=== PATIENT | male | born 1955 | race Caucasian/White ===

== ENCOUNTER 2018-05-12 12:15 | Emergency (ER) | payer OTHER ==
[2018-05-12 14:12] LABS: Bilirubin Negative (Negative); Blood, Urine Trace (Negative); Clarity CLEAR (Clear); Glucose, Urine (Dipstick) Negative (Negative); Leukocyte Negative (Negative); Nitrite Negative (Negative); Protein, Urine (Dipstick) Negative (Neg-Trace); Specific Gravity, Urine 1.017 (1.002-1.036); pH, Urine 5.5 (5.0-9.0)
[2018-05-12 14:14] LABS: Bacteria/HPF None Seen HPF (None Seen); Hyaline Casts/LPF 0-3 HYALINE CAST LPF (0-3 Hyaline); RBC/HPF 0-3 HPF (0-3); Squamous Epithelial None Seen HPF (0-3); WBC/HPF None Seen HPF (0-3)
[2018-05-12 14:32] LABS: #Eosinphils 0.4 thou/uL (0.0-0.7); #Lymphocytes 1.8 thou/uL (1.20-3.40); #Monocytes 0.7 thou/uL (0.11-0.59); #Neutrophils 4.3 thou/uL (1.40-6.50); %Basophils 0.2 % (0.0-1.0); %Eosinophils 6.2 % (0.0-10.0); %Lymphocytes 24.3 % (21.0-51.0); %Monocytes 10.1 % (0.0-10.0); %Neutrophils 59.2 % (42.0-75.0); Hemoglobin 14.2 g/dL (14.0-18.0); Mean Corpuscular HGB CONC 33.1 g/dL (32.0-36.0); Mean Corpuscular Hemoglobin 32.9 pg (27.0-31.0); Mean Corpuscular Volume 99.4 fL (78.0-98.0); Mean Platelet Volume 7.8 fL (7.4-10.4); Platelet Count 189 thou/uL (130-400); RBC Distribution Width 12.2 % (11.5-14.5); Red Blood Cell (RBC) Count 4.32 mill/uL (4.70-6.10); White Blood Cell (WBC) Count 7.2 thou/uL (4.8-10.8)
[2018-05-12 14:51] LABS: ALT (SGPT) 17 U/L (8-55); AST (SGOT) 23 U/L (5-34); Albumin 4.2 g/dL (3.4-4.8); Alkaline Phosphatase 126 U/L (40-150); Anion Gap 12 mmol/L (10-20); BUN (Urea Nitrogen) 17 mg/dL (8.4-25.7); Bilirubin, Total 0.3 mg/dL (0.2-1.2); CK (CPK) 126 U/L (30-200); Calc. Creatinine Clearance 0 mL/min (70-130); Calcium 10.1 mg/dL (7.8-10.44); Carbon Dioxide 30 mmol/L (23-31); Chloride 103 mmol/L (98-107); Estimated GFR-MDRD Greater than 90; Globulin 3.4 g/dL (2.4-3.5); Glucose 107 mg/dL (80-115); Potassium 4.6 mmol/L (3.5-5.1); Protein, Total 7.6 g/dL (5.8-8.1); Sodium 140 mmol/L (136-145)
--- NOTE | 2018-05-12 16:03 | CT ---
CT HEAD NONCONTRAST: Date: 05/12/18 HISTORY: Fall. Head injury. Arm numbness. FINDINGS: No comparison. There is no evidence of acute intracranial hemorrhage or infarct. Ventricles appear normal in size, s hape, and position. Mild chronic ischemic small vessel disease and diffuse cortical atrophy. Visualiz ed paranasal sinuses remain well aerated. IMPRESSION: No acute intracranial abnormalities are demonstrated. POS: [facility]
--- NOTE | 2018-05-12 16:12 | CT ---
CT CERVICAL SPINE NONCONTRAST: Date: 05/12/18 HISTORY: Recent fall and neck injury. Bilateral arm numbness. FINDINGS: Vertebral body heights are maintained. Multilevel disc space narrowing. Minimal degenerative retrolis thesis at the C4-5 level. Prominent osteophytosis throughout the vertebral bodies and facets. No acut e fracture or dislocation. Cervicothoracic junction intact. The osteophytosis and disc bulges result in multilevel severe central canal and foraminal stenoses. IMPRESSION: Severe multilevel degenerative changes throughout the cervical spine. No acute osseous abnormalities are demonstrated. POS: [facility]
== END 2018-05-12 16:15 | disposition home or self-care (01) ==
LOC: ERS 12:15
DX: M54.12 Radiculopathy, cervical region (principal); I25.2 Old myocardial infarction; E78.5 Hyperlipidemia, unspecified; I10 Essential (primary) hypertension; F41.9 Anxiety disorder, unspecified; F32.9 Major depressive disorder, single episode, unspecified; F20.9 Schizophrenia, unspecified; Z79.82 Long term (current) use of aspirin
CPT/HCPCS: 36415; 70450; 72125; 80053; 81003; 81015; 82550; 84484; 85025; 93005; 94760

== ENCOUNTER 2018-07-30 15:12 | Observation (INO) | payer OTHER ==
--- NOTE | 2018-07-30 15:46 | RAD ---
PORTABLE CHEST: HISTORY: Dizziness. COMPARISON: No comparison. FINDINGS: Lungs appear well aerated and clear of infiltrate. There is evidence of small hilar calcified lymph nodes. Vascular markings are slightly more prominent in the lower lung mcadams of uncertain significa nce. No effusion or vascular congestion. No edema. Heart size is normal. Postop sternotomy change is seen. IMPRESSION: No acute process identified. POS: [facility]
--- NOTE | 2018-07-30 15:49 | RAD ---
RIGHT ANKLE 3 VIEWS: HISTORY: Trauma. FINDINGS: Obliquely oriented minimally displaced fracture is seen involving the lateral malleolus. No other fr acture identified. IMPRESSION: Fracture distal fibula. POS: OFF
[2018-07-30 15:58] LABS: #Basophils 0.1 thou/uL (0.0-0.2); #Eosinphils 0.4 thou/uL (0.0-0.7); #Lymphocytes 1.7 thou/uL (1.20-3.40); #Monocytes 0.8 thou/uL (0.11-0.59); #Neutrophils 4.8 thou/uL (1.40-6.50); %Basophils 1.4 % (0.0-1.0); %Eosinophils 5.2 % (0.0-10.0); %Lymphocytes 21.8 % (21.0-51.0); %Monocytes 10.2 % (0.0-10.0); %Neutrophils 61.3 % (42.0-75.0); Hemoglobin 13.8 g/dL (14.0-18.0); Mean Corpuscular HGB CONC 34.1 g/dL (32.0-36.0); Mean Corpuscular Hemoglobin 32.6 pg (27.0-31.0); Mean Corpuscular Volume 95.5 fL (78.0-98.0); Mean Platelet Volume 7.8 fL (7.4-10.4); Platelet Count 197 thou/uL (130-400); RBC Distribution Width 11.5 % (11.5-14.5); Red Blood Cell (RBC) Count 4.23 mill/uL (4.70-6.10); White Blood Cell (WBC) Count 7.8 thou/uL (4.8-10.8)
[2018-07-30 16:14] LABS: ALT (SGPT) 31 U/L (8-55); AST (SGOT) 37 U/L (5-34); Albumin 4.1 g/dL (3.4-4.8); Alkaline Phosphatase 81 U/L (40-150); Anion Gap 12 mmol/L (10-20); BUN (Urea Nitrogen) 17 mg/dL (8.4-25.7); Bilirubin, Total 0.8 mg/dL (0.2-1.2); Calc. Creatinine Clearance 0 mL/min (70-130); Calcium 9.5 mg/dL (7.8-10.44); Carbon Dioxide 29 mmol/L (23-31); Chloride 106 mmol/L (98-107); Estimated GFR-MDRD 72; Glucose 88 mg/dL (80-115); Potassium 4.7 mmol/L (3.5-5.1); Protein, Total 7.1 g/dL (5.8-8.1); Sodium 142 mmol/L (136-145)
[2018-07-30 16:17] LABS: Acetaminophen Less than 6.0 mcg/mL (10.0-30.0); Alcohol Less than 10 mg/dL (Less than 10); Salicylate Less than 8.0 mg/dL (15.0-30.0)
--- NOTE | 2018-07-30 16:21 | CT ---
CT HEAD WITHOUT CONTRAST: Technique: Multiple axial tomograms obtained through the head without IV enhancement. Indications: Trauma. Syncope. Comparison: 05-12-18 FINDINGS: Cortical volume loss over the frontal lobes is stable. Ventricles have normal size and position. Mild ischemic white matter changes appear stable. There is no evidence of acute hemorrhage or mass. Cerebellar atrophy is again seen and is unchanged in appearance. Sinuses and mastoids are clear. IMPRESSION: Prominent cerebellar atrophy. Moderate frontal lobe atrophy. These findings are stable. No acute proc ess apparent. POS: OFF
--- NOTE | 2018-07-30 16:23 | CT ---
CT CERVICAL SPINE: Technique: Multiple axial tomograms were obtained with multiplanar reconstruction. FINDINGS: Moderate degenerative changes of the cervical spine again noted. Loss of disc space and hypertrophic spurring again seen. Slight anterolisthesis at C3-4. Posterior spondylosis at multiple levels. No carolynn dence of acute fracture. Foraminal stenosis at multiple levels with impingement on the spinal canal a nd cord at C4-5 and C5-6. Severe right foraminal stenosis at C6-7. IMPRESSION: Degenerative changes as described. No acute fracture apparent. POS: OFF
[2018-07-30 16:58] LABS: Bilirubin Negative (Negative); Blood, Urine Negative (Negative); Clarity CLEAR (Clear); Glucose, Urine (Dipstick) Negative (Negative); Leukocyte Negative (Negative); Nitrite Negative (Negative); Protein, Urine (Dipstick) Negative (Neg-Trace); Specific Gravity, Urine 1.012 (1.002-1.036)
[2018-07-30 17:07] LABS: Amphetamine Not Detected (NotDetected); Barbiturates Screen Not Detected (NotDetected); Benzodiazepine Screen Not Detected (NotDetected); Cocaine Metabolite Screen Not Detected (NotDetected); Medtox Control Line Valid? VALID (VALID); Medtox Reader # READER 4; Methadone Not Detected (NotDetected); Methamphetamine Not Detected (NotDetected); Opiate Screen Not Detected (NotDetected); Oxycodone Screen Not Detected (NotDetected); Phencyclidine (PCP) Not Detected (NotDetected); THC/Cannabinoid Screen Not Detected (NotDetected); Tricyclic Screen Not Detected (NotDetected)
[2018-07-30] MEDS ORDERED: HYDROcodone/Acetaminophen 5/325 mg Tablet ONE (18:26)
[2018-07-30] MEDS ORDERED: Acetaminophen 325 MG TAB PO PRN (20:51)
[2018-07-30] MEDS ORDERED: Ondansetron ODT 4 MG TAB SL PRN (20:51)
[2018-07-30] MEDS ORDERED: Ondansetron PF 4 MG/2 ML Vial IVP PRN (20:51)
[2018-07-30 20:58] VITALS: BMI 23.8
[2018-07-31] MEDS: traMADol HCl 50 MG TAB PO PRN ×4 (00:18→19:03)
--- NOTE | 2018-07-31 00:50 | HP ---
PRIMARY CARE PHYSICIAN: None. CHIEF COMPLAINT: Syncope and right ankle pain. HISTORY OF PRESENT ILLNESS: Mr. Alexander is a 62-year-old male who is currently incarcerated with a past medical history of hypertension; hyperlipidemia; coronary artery disease, status post quadruple bypass, who had presented to [facility] after he experienced a syncopal episode earlier today. He states that he was sitting on his bed and he had got up to use the restroom and as he was using the restroom, he had felt dizzy and had felt the room closing in, next thing he knew he was waking up and he was on the ground, he had sustained a closed head injury and hit his head on the metal toilet and he states that when he came to, he had noticed that he had pain in his right ankle. Upon arrival, the patient underwent further workup which included a CT of head without contrast, which showed prominence of cerebellar atrophy with moderate frontal lobe atrophy, which was stable and no acute process apparent. He also underwent a portable chest x-ray, which found to show no acute process. CT cervical spine without contrast showed degenerative changes throughout his cervical spine. An x-ray of his right ankle displayed a minimal displaced fracture that was involving the lateral malleolus with no other fracture identified. Orthopedic Surgery was contacted by the ED staff who had recommended splinting the right foot and to be continued nonweightbearing with the use of crutches. He was given [place] for his pain and he was admitted for further workup of his syncope. The patient denied any fever, chills, any headache, blurred vision, or dizziness. He had denied any chest pain, palpitations, shortness of breath, abdominal pain, nausea, or vomiting. He had denied any change in his stool. His vital signs were monitored and it was found that the patient be positive orthostatic and his blood pressure dropped from 147/95 to 113/77. He had mild symptoms at that time. The patient reports residing at a [facility] and had not been taking his home medications, however, since he has been an inmate, he has been taking his medications as directed. REVIEW OF SYSTEMS: All other systems reviewed and found to be negative unless mentioned in HPI. PAST MEDICAL HISTORY: Significant for hypertension, hyperlipidemia, coronary artery disease, status post quadruple bypass. PAST SURGICAL HISTORY: Quadruple bypass and left knee replacement in 2005. PAST PSYCHIATRIC HISTORY: Significant for bipolar disorder, PTSD, anxiety, depression, schizophrenia, which he has a previous history of an inpatient psychiatric admission at a facility in [place] in [place]. SOCIAL HISTORY: The patient denies any alcohol, tobacco, or illicit drug use. KNOWN ALLERGIES: No known drug allergies. CURRENT HOME MEDICATIONS: 1. Aspirin 81 mg p.o. daily. 2. Atorvastatin 80 mg p.o. at bedtime. 3. Carvedilol 3.125 mg p.o. b.i.d. 4. Clopidogrel 75 mg p.o. daily. 5. Fluoxetine 40 mg p.o. daily. 6. Isosorbide mononitrate 30 mg p.o. daily. 7. Terazosin 1 mg p.o. at bedtime. 8. Ibuprofen 600 mg p.o. b.i.d. p.r.n. pain. PHYSICAL EXAMINATION: VITAL SIGNS: BP 112/66, pulse 82, respirations 16, temperature 98 degrees Fahrenheit, O2 saturations 96% on room air. HEENT: Atraumatic, normocephalic. Pupils are round and reactive to light. Extraocular muscles intact. Moist mucous membranes noted. NECK: Soft and supple. Trachea midline. CARDIOVASCULAR: Positive S1 and S2. Regular rate and rhythm. No murmur auscultated. RESPIRATORY: Clear to auscultation bilaterally. No wheezes, rales, or rhonchi appreciated. ABDOMEN: Soft, nontender. Bowel sounds present. MUSCULOSKELETAL: Strength 5+ bilaterally in upper and lower extremities. Moves all extremities equal. Splint applied to right lower extremity/foot. No edema noted. NEUROLOGIC: Cranial nerves 2 through 12 grossly intact. No focal deficits noted. Speech intact and normal. Gait not assessed. SKIN: Warm, dry, and intact. Multiple tattoos noted in upper extremities. PSYCHIATRIC: Good mood and affect. LABORATORY DATA: WBC 7.8, RBC 4.23, hemoglobin 13.8, platelets 197. Sodium 142, potassium 4.7, anion gap 12, BUN 17, creatinine 1.05, estimated GFR 72. Troponin less than 0.010. Urinalysis negative. Drug screen was unremarkable. DIAGNOSTIC IMAGING: CT head without contrast shows prominence of cerebellar atrophy with moderate frontal lobe atrophy. No acute process apparent. Portable chest x-ray shows no acute process. CT cervical spine without contrast showed degenerative changes throughout cervical spine, however, no acute fracture noted. Right ankle three-view x-ray showed fracture of distal fibula. ASSESSMENT/PLAN: 1. Syncope, likely secondary to orthostatic hypotension. His home dose of terazosin will be held and his blood pressure and orthostatics will be monitored throughout hospital stay. He states that he had a recent workup within the last year at [facility] and he states that he underwent an echocardiogram during this visit. Therefore, we will ask for his records at [facility] and await for these for further workup. 2. Distal fibula fracture. The patient remains in splint at this time and he is directed for nonweightbearing and to use crutches, assisted devices. Orthopedic Surgery was contacted by the ED staff and no surgical emergency at this time, patient will likely follow up with Orthopedic Surgery as outpatient. 3. History of hypertension, currently stable at this time. However, patient appears to be orthostatic hypotensive. He will be restarted on his home regimen. However, we will hold terazosin at this time and continue to monitor blood pressure and orthostatics. 4. History of hyperlipidemia. Continue home statin. 5. History of coronary artery disease, status post quadruple bypass. Continue home regimen. 6. Deep venous thrombosis and gastrointestinal prophylaxis. CODE STATUS: Full code. DISPOSITION: He will be monitored on telemetry. We will hold his home terazosin. His blood pressure and orthostatic vital signs will be monitored in the morning. CBC and BMP will be rechecked in the morning. TSH will be checked and we will await records from [facility] for further workup. The patient will likely be discharged back to [facility] in 24 to 48 hours. Job ID: [id number]
[2018-07-31 05:13] LABS: #Basophils 0.1 thou/uL (0.0-0.2); #Eosinphils 0.4 thou/uL (0.0-0.7); #Neutrophils 6.7 thou/uL (1.40-6.50); %Basophils 0.5 % (0.0-1.0); %Monocytes 9.3 % (0.0-10.0); %Neutrophils 66.1 % (42.0-75.0); Hemoglobin 13.4 g/dL (14.0-18.0); Mean Corpuscular HGB CONC 34.1 g/dL (32.0-36.0); Mean Corpuscular Hemoglobin 32.5 pg (27.0-31.0); Mean Corpuscular Volume 95.3 fL (78.0-98.0); Mean Platelet Volume 7.7 fL (7.4-10.4); Platelet Count 180 thou/uL (130-400); RBC Distribution Width 11.3 % (11.5-14.5); Red Blood Cell (RBC) Count 4.13 mill/uL (4.70-6.10); White Blood Cell (WBC) Count 10.2 thou/uL (4.8-10.8)
[2018-07-31 05:32] LABS: Anion Gap 13 mmol/L (10-20); BUN (Urea Nitrogen) 20 mg/dL (8.4-25.7); Calc. Creatinine Clearance 75 mL/min (70-130); Calcium 9.3 mg/dL (7.8-10.44); Carbon Dioxide 26 mmol/L (23-31); Chloride 107 mmol/L (98-107); Estimated GFR-MDRD 69; Glucose 82 mg/dL (80-115); Potassium 4.5 mmol/L (3.5-5.1); Sodium 141 mmol/L (136-145)
--- NOTE | 2018-07-31 09:20 | ULT ---
BILATERAL CAROTID DUPLEX ULTRASOUND: HISTORY: Syncope TECHNIQUE: Grayscale, color-flow and spectral Doppler ultrasound imaging of the extracranial carotid artery syst ems was performed bilaterally. FINDINGS: Mild plaque formation. The peak systolic velocity in the right ICA measures 76 cm/s. The peak systolic velocity in the left ICA measures 80 cm/s. Vertebral flow: antegrade, bilaterally. . IMPRESSION: No hemodynamically significant stenosis of Both ICAs.
[2018-07-31] MEDS: Clopidogrel Bisulfate 75 MG TAB PO SCH (09:51)
[2018-07-31] MEDS: Carvedilol 3.125 MG TAB PO SCH ×2 (09:51→19:52)
[2018-07-31] MEDS: Enoxaparin Sodium 40 MG/0.4 ML SYRINGE SC SCH (09:52)
[2018-07-31] MEDS: Aspirin 81 mg Enteric Coated Tablet PO SCH (09:52)
[2018-07-31] MEDS: FLUoxetine HCl 20 MG CAP PO SCH (09:52)
[2018-07-31] MEDS: Sodium Chloride 0.9% 1,000 ML IV SCH ×2 (09:52→17:46)
--- NOTE | 2018-07-31 19:33 | PRG ---
DATE OF SERVICE: 07/31/2018 SUBJECTIVE: Mr. Alexander is a 62-year-old male with past medical history significant for hypertension; BPH, on terazosin; CAD status post CABG; who presented with complaints of a syncopal event that he suffered in care home. The patient was orthostatic on arrival, and he remains orthostatic this morning with BP dropping 30 systolic points from lying to standing. He complains of some right lower extremity pain from his fracture. He has no chest pain or shortness of breath. He does complain of bilateral hand tingling. OBJECTIVE: VITAL SIGNS: Blood pressure 120/82, O2 saturation 93% on room air, respirations 16, pulse 79, and temperature 97.9. GENERAL: The patient is awake, alert, and oriented, and resting comfortably in bed, in no acute distress. HEENT: Head, atraumatic and normocephalic. Mucous membranes are moist. NECK: No carotid bruits. No lymphadenopathy. No JVD. Trachea is midline. CV: S1 and S2, regular rate and rhythm. No appreciable murmurs, rubs, or gallops. LUNGS: Regular respiratory rate and pattern, overall clear to auscultation bilaterally. ABDOMEN: Positive bowel sounds. Soft, nontender. EXTREMITIES: Right lower extremity is splinted and wrapped, there is no edema in the left lower extremity. NEUROLOGIC: Cranial nerves 2 through 12 are intact. The patient is nonfocal. LABORATORY DATA: White blood cell count 10.2, hemoglobin 13.4, hematocrit 39.4. Sodium 141, potassium 4.5, chloride 107, carbon dioxide 26, anion gap 13, BUN 20, creatinine 1.09. TSH 1.0609. ASSESSMENT: 1. Syncope, likely secondary to orthostatic hypotension. 2. Distal right fibular fracture, nondisplaced, secondary to fall from above. 3. Degenerative disk disease of cervical spine with resulting radiculopathy. 4. Coronary artery disease, status post coronary artery bypass grafting, status post stents, on aspirin and Plavix. 5. Hypertension. 6. BPH. PLAN: At this time, we will provide IV fluid resuscitation, and recheck orthostatic vitals. We will obtain a carotid ultrasound, echocardiogram in the light of recent syncopal event. The patient will remain nonweightbearing until outpatient followup with Ortho. If the patient's orthostatic vitals improve with IV fluid resuscitation and carotid Doppler and echo are negative, expect discharge back to his facility/care home tomorrow. Care of this patient was discussed with Dr. Lemus, who agrees with the above. Job ID: [id number]
[2018-07-31] MEDS ORDERED: Atorvastatin Calcium 40 MG TAB PO SCH (21:00)
[2018-08-01] MEDS: traMADol HCl 50 MG TAB PO PRN ×2 (01:12→08:22)
[2018-08-01] MEDS: Sodium Chloride 0.9% 1,000 ML IV SCH ×2 (02:31→12:06)
[2018-08-01] MEDS: FLUoxetine HCl 20 MG CAP PO SCH (08:22)
[2018-08-01] MEDS: Carvedilol 3.125 MG TAB PO SCH (08:22)
[2018-08-01] MEDS: Aspirin 81 mg Enteric Coated Tablet PO SCH (08:22)
[2018-08-01] MEDS: Enoxaparin Sodium 40 MG/0.4 ML SYRINGE SC SCH (08:22)
[2018-08-01] MEDS: Clopidogrel Bisulfate 75 MG TAB PO SCH (08:23)
[2018-08-01 12:13] VITALS: BP 112/77; TEMP 97.2
--- NOTE | 2018-08-02 06:52 | DIS ---
DATE OF ADMISSION: 07/30/2018 DATE OF DISCHARGE: 08/01/2018 ADMISSION DIAGNOSIS: Syncope. DISCHARGE DIAGNOSES: 1. Syncope secondary to orthostatic hypotension, resolved. 2. Nondisplaced distal right fibular fracture secondary to fall from above. 3. Orthostatic hypotension, resolved after fluid resuscitation and discontinuation of terazosin. 4. Coronary artery disease, status post coronary artery bypass graft, status post stents, stable. 5. Ischemic cardiomyopathy, mild, stable. 6. Chronic degenerative disk disease of the cervical spine with resulting radiculopathy, stable. BRIEF HOSPITAL COURSE: The patient is a 62-year-old incarcerated male with past medical history significant for hypertension, BPH, on terazosin, CAD, status post CABG, who presented after suffering a syncopal event that he suffered in group home. The patient states he had gotten out of bed to walk over to use the restroom. History obtained per guard at the bedside, who saw the event on video camera stated that the patient fell and did strike his head on the toilet. He was taken on to the [facility] for further workup and treatment. On arrival, CT scan of the brain showed no acute intracranial abnormality. Ankle x-ray of the right lower extremity showed a fractured distal fibula involving the lateral malleolus. No other fracture identified and was minimally displaced. Workup over the course of the hospitalization also included carotid Dopplers, which was negative for any significant stenosis, and echocardiogram, which showed mild left ventricular systolic dysfunction with EF 45% to 50%. The patient's terazosin was discontinued, and he received IV fluids. As mentioned, his terazosin was stopped. Repeat orthostatics this morning showed stable BP and no drop in systolic pressure from lying to standing. This morning, on the day of his discharge, the patient has no complaints to me. He has had no dizziness or further syncopal spells. His pain from his fibular fracture is much improved. He has no chest pain or shortness of breath. He has had no nausea or vomiting. DISCHARGE INSTRUCTIONS: The patient is to continue his medication regimen including aspirin, statin, and Plavix. He will continue his carvedilol and fluoxetine. He will also continue his Imdur. His terazosin will be stopped indefinitely. He will have a prescription for tramadol p.r.n. for pain. FOLLOWUP: The patient will need continued followup with Orthopedics through his facility for further recommendations regarding his fracture. He will continue nonweightbearing with his crutches until that time. He will continue his heart medications as outlined above. DISCHARGE DISPOSITION: [place]. DISCHARGE CONDITION: Stable. The care of this patient was discussed with Dr. Lemus, who agrees with plan and discharge as outlined above. Job ID: [id number]
== END 2018-08-01 13:52 ==
LOC: ERS 15:12 → 2SW 17:37
PROVIDERS: ADMIT Family Medicine; ATTEND Family Medicine
DX: I95.1 Orthostatic hypotension (principal); S82.64XA Nondisplaced fracture of lateral malleolus of right fibula, initial encounter for closed fracture; M50.10 Cervical disc disorder with radiculopathy, unspecified cervical region; I10 Essential (primary) hypertension; I25.10 Atherosclerotic heart disease of native coronary artery without angina pectoris; I25.5 Ischemic cardiomyopathy; E78.5 Hyperlipidemia, unspecified; N40.0 Benign prostatic hyperplasia without lower urinary tract symptoms; I25.2 Old myocardial infarction; F31.9 Bipolar disorder, unspecified; F41.9 Anxiety disorder, unspecified; F20.9 Schizophrenia, unspecified; F43.10 Post-traumatic stress disorder, unspecified; Z95.1 Presence of aortocoronary bypass graft; Z79.1 Long term (current) use of non-steroidal anti-inflammatories (NSAID); Z79.82 Long term (current) use of aspirin; Z79.891 Long term (current) use of opiate analgesic; Z79.899 Other long term (current) drug therapy; W18.12XA Fall from or off toilet with subsequent striking against object, initial encounter; Y92.142 Bathroom in prison as the place of occurrence of the external cause
CPT/HCPCS: 29515; 36415; 70450; 71045; 72125; 80048; 80053; 80306; 80307; 81003; 82607; 84443; 84484; 85025; 87086; 93005; 93306; 93880; 96360; 96361; 96372; G0378; J1650